=== PATIENT | female | born 1955 | race Caucasian/White ===

== ENCOUNTER 2020-04-17 09:35 | Outpatient (NON) | payer OTHER, SELFPAY ==
[2020-04-17 19:18] LABS: SARS-CoV-2 RNA PCR Negative
== END 2020-04-17 09:36 ==
LOC: ANHCOVIDDT 09:37
PROVIDERS: PCP Internal Medicine; Visit Provider Internal Medicine
DX: Z20.822 Contact with and (suspected) exposure to COVID-19 (principal)
CPT/HCPCS: C9803; U0003; U0005